=== PATIENT | female | born 1980 | race Two or more races ===

== ENCOUNTER 2018-09-09 10:40 | Emergency (ER) | payer OTHER ==
[2018-09-09 10:51] VITALS: BP 138/80; PULSE 65; TEMP 97.7; BMI 30.1
--- NOTE | 2018-09-09 11:52 | PDOC ---
History of Present Illness - General Chief Complaint: Abscess Boil Stated Complaint: RT BREAST LYMPH NODES Time Seen by Provider: 09/09/18 11:09 - History of Present Illness Initial Comments: 09/09/18 11:48 37-year-old female presents for evaluation of a breast mass. She states she felt a mass 3 days ago she comes to the emergency room for evaluation. She denies systemic symptoms. Past History - Past Medical History Allergies/Adverse Reactions: Allergies Allergy/AdvReac Type Severity Reaction Status Date / Time No Known Allergies Allergy Verified 09/09/18 10:51 Home Medications: Ambulatory Orders NK [No Known Home Medication] 09/09/18 COPD: No Liver Disease: No - Surgical History Cholecystectomy: No - Immunization History Immunization Up to Date: No - Suicide/Smoking/Psychosocial Hx Smoking History: Never smoked Have you smoked in the past 12 months: No Information on smoking cessation initiated: No Hx Alcohol Use: No Drug/Substance Use Hx: No Review of Systems - Review of Systems Constitutional: No: Chills, Fever, Malaise, Night Sweats Integumentary: Yes: Lumps *Physical Exam - Vital Signs Last Vital Signs Temp Pulse Resp BP Pulse Ox 97.7 F 65 18 138/80 99 09/09/18 10:47 09/09/18 10:47 09/09/18 10:47 09/09/18 10:47 09/09/18 10:47 - Physical Exam Comments: 09/09/18 11:49 HEAD: NC/AT EYES: Conjuntiva clear Breast examination: Examination of the right breast was done with female nurse in the room. There is a subcentimeter firm freely mobile nodule at the 9 o' clock position adjacent to the right nipple. There is mild tenderness with normal overlying skin color and temperature there is a similar nodule at the 3 o 'clock position adjacent to the nipple MS: Full ROM in all joints without edema NEUROLOGIC: No gross sensory or motor deficits, NVID SKIN: Normal color and temperature no lesions or rashes Medical Decision Making - Medical Decision Making 09/09/18 11:50 We will refer to breast surgery for evaluation and treatment options *DC/Admit/Observation/Transfer Diagnosis at time of Disposition: Breast mass in female - Discharge Dispostion Disposition: HOME Condition at time of disposition: Stable Decision to Admit order: No - Referrals Referrals: Cali Alvarado MD [Staff Physician] - - Patient Instructions Printed Discharge Instructions: DI for Breast Cyst Additional Instructions: Regrese a la bisi de emergencias por empeoramiento de los sntomas. Por favor, kyler un seguimiento con ciruga de senos en 1-2 reina para tanvi evaluacin adicional y opciones de tratamiento return to the emergency room for worsening symptoms. Please follow-up with breast surgery in 1-2 days for further evaluation and treatment options Print Language: [id number] - Post Discharge Activity
== END 2018-09-09 12:04 | disposition home or self-care (01) ==
LOC: JERFT 10:40
DX: N63.0 Unspecified lump in unspecified breast (principal)
CPT/HCPCS: 99281-25

== ENCOUNTER 2024-10-03 19:30 | Emergency (ER) | payer OTHER ==
[2024-10-03 19:37] VITALS: BP 143/95; PULSE 59; RESP 18; TEMP 97.7; BMI 23.0
[2024-10-03] MEDS ORDERED: IBUPROFEN 600 MG TABLET (FP) PO ONE (20:11)
[2024-10-03] MEDS ORDERED: ACETAMINOPHEN 500 MG TABLET (FP) ONE (20:11)
[2024-10-03] MEDS: IBUPROFEN 600 MG TABLET (FP) PO ONE (20:15)
[2024-10-03] MEDS: ACETAMINOPHEN 500 MG TABLET (FP) PO ONE (20:16)
== END 2024-10-03 20:38 | disposition home or self-care (01) ==
LOC: JERFT 19:30
DX: S99.922A Unspecified injury of left foot, initial encounter (principal); V00.818A Other accident with wheelchair (powered), initial encounter
CPT/HCPCS: 73630-TC-LT; 99283-25